=== PATIENT | female | born 1970 | race Native Hawaiian/Other Pacific Islander ===

== ENCOUNTER 2018-02-03 15:42 | Emergency (ER) | payer OTHER ==
[2018-02-03] MEDS ORDERED: SODIUM CHLORIDE 0.9% 1,000 ML IV ONE (16:11)
--- NOTE | 2018-02-03 16:14 | ED Physician Documentation ---
PD HPI NVD - Stated complaint Stated Complaint: DIARRHEA - Chief complaint Chief Complaint: Abd Pain - History obtained from History obtained from: Patient, Family - History of Present Illness Timing - onset: Last night Timing - duration: Hours Timing - details: Abrupt onset, Still present Associated symptoms: Abdominal pain, Other (nausea without vomiting) Improved by: Laying still, BM Similar symptoms before: Has not had sx before Recently seen: Not recently seen - Additonal information Additional information: Previously healthy 47-year-old female developed profuse diarrhea beginning yesterday evening. She states that she had more than 10 diarrheal movements of watery diarrhea without blood. She does not have a history of diarrhea and she does give history of consumption of eggs that she derives from chickens on her property. She states that yesterday she had eggs and rice for breakfast she had the usual sandwich she has for lunch and developed the diarrhea in the evening. She is complaining of some hives which she has had off and on for the past 2 weeks. She has had these hives once previously when she was . Review of Systems Constitutional: reports: Myalgias, Fatigue. denies: Fever, Chills Eyes: denies: Decreased vision Ears: denies: Ear pain Nose: denies: Congestion Throat: denies: Sore throat Cardiac: denies: Chest pain / pressure, Palpitations Respiratory: denies: Dyspnea, Cough GI: reports: Abdominal Pain, Nausea, Diarrhea. denies: Vomiting : denies: Dysuria, Frequency Skin: denies: Rash Musculoskeletal: denies: Neck pain, Back pain, Extremity pain Neurologic: denies: Generalized weakness, Focal weakness, Numbness PD PAST MEDICAL HISTORY - Present Medications Home Medications: Ambulatory Orders Medication Instructions Recorded Confirmed Multivitamin [Multiple Vitamins] 02/03/18 Ondansetron Odt [Zofran] 4 mg TL Q6H PRN #10 tablet 02/03/18 - Allergies Allergies/Adverse Reactions: Allergies Allergy/AdvReac Type Severity Reaction Status Date / Time No Known Drug Allergies Allergy Verified 02/03/18 15:47 PD ED PE NORMAL - Vitals Vital signs reviewed: Yes (hypertensive) - General General: Alert and oriented X 3, No acute distress, Well developed/nourished - HEENT HEENT: Atraumatic, PERRL, EOMI - Neck Neck: Supple, no meningeal sign, No bony TTP - Cardiac Cardiac: RRR, No murmur - Respiratory Respiratory: No respiratory distress, Clear bilaterally - Abdomen Abdomen: Normal bowel sounds, Soft, Non tender, Non distended, No organomegaly - Back Back: No CVA TTP, No spinal TTP - Derm Derm: Normal color, Warm and dry, No rash - Extremities Extremities: No deformity, No edema - Neuro Neuro: Alert and oriented X 3, 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, No motor deficit, No sensory deficit, Normal speech Eye Opening: Spontaneous Motor: Obeys Commands Verbal: Oriented GCS Score: 15 - Psych Psych: Normal mood, Normal affect Results - Vitals Vitals: Vital Signs - 24 hr 02/03/18 02/03/18 15:45 17:30 Temperature 36.8 C Heart Rate 91 82 Respiratory 16 19 Rate Blood Pressure 138/80 H 142/88 H O2 Saturation 99 100 Oxygen O2 Source Room air - Labs Labs: Laboratory Tests 02/03/18 02/03/18 02/03/18 16:45 16:45 17:20 WBC 6.5 RBC 4.45 Hgb 13.4 Hct 40.4 MCV 90.8 MCH 30.1 MCHC 33.2 RDW 13.7 Plt Count 281 MPV 8.7 Neut # (Auto) 4.3 Lymph # (Auto) 1.2 L [place] # (Auto) 0.7 Eos # (Auto) 0.2 Baso # (Auto) 0.0 Absolute Nucleated RBC 0.00 Nucleated RBC % 0.1 Sodium 132 L Potassium 7.6 H* Chloride 100 L Carbon Dioxide 25 Anion Gap 7.0 BUN 12 Creatinine 0.8 Estimated GFR (MDRD) 77 L Glucose 104 H Calcium 8.2 L Total Bilirubin 1.5 H AST 63 H ALT 38 Alkaline Phosphatase 73 Total Protein 7.5 Albumin 3.9 Globulin 3.6 Albumin/Globulin Ratio 1.1 Lipase 32 Urine Color YELLOW Urine Clarity HAZY Urine pH 6.5 Ur Specific [place] 1.015 Urine Protein NEGATIVE Urine Glucose (UA) NEGATIVE Urine Ketones NEGATIVE Urine Occult Blood NEGATIVE Urine Nitrite POSITIVE H Urine Bilirubin NEGATIVE Urine Urobilinogen 0.2 (NORMAL) Ur Leukocyte Esterase SMALL H Urine RBC None Seen Urine WBC 11-25 H Ur Squamous Epith Cells MOD Squamous H Urine Bacteria Many H Ur Microscopic Review INDICATED Urine Culture Comments NOT INDICATED Urine HCG, Qual NEGATIVE 02/03/18 02/03/18 18:30 18:45 WBC RBC Hgb Hct MCV MCH MCHC RDW Plt Count MPV Neut # (Auto) Lymph # (Auto) [place] # (Auto) Eos # (Auto) Baso # (Auto) Absolute Nucleated RBC Nucleated RBC % Sodium 137 Potassium 3.6 Chloride 105 Carbon Dioxide 25 Anion Gap 7.0 BUN 10 Creatinine 0.8 Estimated GFR (MDRD) 77 L Glucose 99 Calcium 8.0 L Total Bilirubin AST ALT Alkaline Phosphatase Total Protein Albumin Globulin Albumin/Globulin Ratio Lipase Urine Color YELLOW Urine Clarity CLEAR Urine pH 7.0 Ur Specific [place] 1.010 Urine Protein NEGATIVE Urine Glucose (UA) NEGATIVE Urine Ketones NEGATIVE Urine Occult Blood TRACE-INTA Urine Nitrite NEGATIVE Urine Bilirubin NEGATIVE Urine Urobilinogen 0.2 (NORMAL) Ur Leukocyte Esterase NEGATIVE Urine RBC Urine WBC Ur Squamous Epith Cells Urine Bacteria Ur Microscopic Review NOT INDICATED Urine Culture Comments NOT INDICATED Urine HCG, Qual Procedures - IVC sono (time) 1605 Bedside IVC sono: IVC measures (cm) (1.21), IVC collapsed c insp (cm) (complete) , Dehydration (est 1 liter deficit) PD MEDICAL DECISION MAKING - ED course Complexity details: reviewed old records, reviewed results, re-evaluated patient , considered differential, d/w patient, d/w family ED course: 47-year-old female with acute explosive diarrhea has become mildly dehydrated. IV is begun she is given intravenous saline her inferior vena cava is interrogated and she is about 1 L deficit. She produces a urine specimen that appears infected but contaminated and a cath specimen is sought and this is not obtained secondary to abnormal anatomy. A second clean catch specimen is obtained and appears without infection. - Sepsis Event Vital Signs: Vital Signs - 24 hr 02/03/18 02/03/18 15:45 17:30 Temperature 36.8 C Heart Rate 91 82 Respiratory 16 19 Rate Blood Pressure 138/80 H 142/88 H O2 Saturation 99 100 Oxygen O2 Source Room air Departure - Departure Disposition: 01 Home, Self Care Clinical Impression: Dehydration, Acute diarrhea Condition: Stable Instructions: ED Dehydration, ED Diet Vomiting Diarrhea Follow-Up: ABBY Harris [Provider Group] Prescriptions: Ondansetron Odt [Zofran] 4 mg TL Q6H PRN #10 tablet PRN Reason: Nausea / Vomiting
[2018-02-03 17:03] LABS: BASOPHILS % (AUTO) 0.5 %; EOSINOPHILS # (AUTO) 0.2 10^3/uL (0.0-0.7); EOSINOPHILS % (AUTO) 3.2 %; HGB - HEMOGLOBIN 13.4 g/dL (12.0-16.0); LYMPHOCYTES # (AUTO) 1.2 10^3/uL (1.5-3.5); LYMPHOCYTES % (AUTO) 18.8 %; MEAN CORPUSCULAR HEMOGLOBIN 30.1 pg (27.0-31.0); MEAN CORPUSCULAR HGB CONC 33.2 g/dL (32.0-36.0); MEAN CORPUSCULAR VOLUME 90.8 fL (81.0-99.0); MEAN PLATELET VOLUME 8.7 fL (7.9-10.8); MONOCYTES # (AUTO) 0.7 10^3/uL (0.0-1.0); MONOCYTES % (AUTO) 10.9 %; NEUTROPHILS # (AUTO) 4.3 10^3/uL (1.5-6.6); NEUTROPHILS % (AUTO) 66.6 %; PLT - PLATELET COUNT 281 10^3/uL (130-450); RED BLOOD COUNT 4.45 10^6/uL (4.20-5.40); RED CELL DISTRIBUTION WIDTH 13.7 % (12.0-15.0); WHITE BLOOD COUNT 6.5 x10^3/uL (4.8-10.8)
[2018-02-03 17:22] LABS: ALBUMIN 3.9 g/dL (3.2-5.5); ALBUMIN/GLOBULIN RATIO 1.1 (1.0-2.2); BILIRUBIN,TOTAL 1.5 mg/dL (0.2-1.0); CALCIUM 8.2 mg/dL (8.5-10.3); CREATININE 0.8 mg/dL (0.4-1.0); TOTAL PROTEIN 7.5 g/dL (6.7-8.2)
[2018-02-03 17:38] LABS: BILIRUBIN,URINE NEGATIVE (NEGATIVE); GLUCOSE, URINE (UA) NEGATIVE (NEGATIVE); KETONES,URINE (UA) NEGATIVE (NEGATIVE); LEUKOCYTE ESTERASE, URINE SMALL (NEGATIVE); NITRITE,URINE POSITIVE (NEGATIVE); OCCULT BLOOD,URINE NEGATIVE (NEGATIVE); PH,URINE 6.5 PH (5.0-7.5); PROTEIN,URINE NEGATIVE (NEGATIVE); UROBILINOGEN,URINE 0.2 (NORMAL) E.U./dL (NORMAL)
[2018-02-03 17:42] LABS: CLARITY,URINE HAZY (CLEAR); HCG UR QUAL NEGATIVE
[2018-02-03 17:49] LABS: BACTERIA,URINE Many /HPF (None Seen); RBC,URINE None Seen /HPF (0-5); SQUAMOUS EPITHELIAL CELL,UR MOD Squamous (<= Few)
[2018-02-03 18:45] LABS: BILIRUBIN,URINE NEGATIVE (NEGATIVE); GLUCOSE, URINE (UA) NEGATIVE (NEGATIVE); KETONES,URINE (UA) NEGATIVE (NEGATIVE); LEUKOCYTE ESTERASE, URINE NEGATIVE (NEGATIVE); NITRITE,URINE NEGATIVE (NEGATIVE); OCCULT BLOOD,URINE TRACE-INTA (NEGATIVE); PROTEIN,URINE NEGATIVE (NEGATIVE); UROBILINOGEN,URINE 0.2 (NORMAL) E.U./dL (NORMAL)
[2018-02-03 18:47] LABS: CLARITY,URINE CLEAR (CLEAR)
[2018-02-03 18:59] LABS: CREATININE 0.8 mg/dL (0.4-1.0)
[2018-02-03 19:13] VITALS: BP 133/87
== END 2018-02-03 19:13 | disposition home or self-care (01) ==
LOC: ED 15:42
DX: E86.0 Dehydration (principal); R19.7 Diarrhea, unspecified; R11.0 Nausea
CPT/HCPCS: 36415; 80048; 80053; 81001; 81003; 81025; 83690; 85025; 87086; 96360; 96361; 99283

== ENCOUNTER 2019-07-26 11:08 | Outpatient (CLI) | payer OTHER ==
--- NOTE | 2019-07-27 08:22 | Mammography Report ---
Reason: ROUTINE SCREENING Procedure Date: 07/26/2019 Accession Number: [id number] / [id number] Procedure: AVILA - Screening Mammo Dig Bilat CPT Code: Final Report FULL RESULT: EXAM: Screening Mammo Dig Bilat DATE: 07/26/2019 11:50 AM CLINICAL HISTORY: The patient is an asymptomatic 49-year-old female. Late childbearing. Prior benign breast biopsies. TECHNIQUE: (B) - Bilateral CC, laterally exaggerated CC, MLO views were obtained. COMPARISON: None available. PARENCHYMAL PATTERN: (D) - The breasts demonstrate heterogeneously dense fibroglandular parenchyma bilaterally. FINDINGS: Nonspecific nodular glandular asymmetry noted on this examination. A microclip in the retroareolar position of the right breast corresponds to the site of prior reported benign biopsy. There are no suspicious masses, calcifications, or areas of distortion. IMPRESSION: Benign findings. BI-RADS category 2. RECOMMENDATION: (ANNUAL) - Recommend routine annual screening mammography. Note: If prior mammograms become available - an addendum with updated recommendations will be issued. BI-RADS CATEGORY: (2) - Benign Findings. STANDARD QUALIFYING STATEMENTS: A negative or benign imaging report should not preclude biopsy if clinically suspicious findings are present. Dense breasts may obscure an underlying neoplasm.
== END 2019-07-26 11:09 | disposition home or self-care (01) ==
LOC: DI 11:08
DX: Z12.31 Encounter for screening mammogram for malignant neoplasm of breast (principal)
CPT/HCPCS: 77067

== ENCOUNTER 2021-05-15 08:00 | Outpatient (CLI) | payer OTHER | END 2021-05-15 23:59 | disposition home or self-care (01) | LOC: LAB 08:00 | PROVIDERS: ATTEND Physician Assistant Medical | DX: N30.00 Acute cystitis without hematuria (principal) | CPT/HCPCS: 87077; 87086; 87181 ==

== ENCOUNTER 2021-06-23 08:00 | Outpatient (CLI) | payer OTHER ==
--- NOTE | 2021-06-23 14:43 | XRAY Report ---
PROCEDURE: Chest 2 View X-Ray INDICATIONS: UPPER RESPIRATORY INFECTION TECHNIQUE: 2 view(s) of the chest. COMPARISON: None. FINDINGS: Surgical changes and devices: None. Lungs and pleura: No pleural effusions or pneumothorax. Lungs are clear. Mediastinum: Mediastinal contours are normal. Heart size is normal. Bones and chest wall: No suspicious bony abnormalities. Soft tissues appear unremarkable. IMPRESSION: No acute pulmonary process. Reviewed by: Hayley Simon MD on 06/23/2021 2:41 PM [facility] Approved by: Hayley Simon MD on 06/23/2021 2:41 PM [facility] Station ID: [id number]
== END 2021-06-23 23:59 | disposition home or self-care (01) ==
LOC: DI.S 08:00
PROVIDERS: ATTEND Emergency Medicine
DX: U07.1 COVID-19 (principal); J06.9 Acute upper respiratory infection, unspecified
CPT/HCPCS: 87070

== ENCOUNTER 2022-08-25 15:03 | Outpatient (CLI) | payer OTHER ==
--- NOTE | 2022-08-27 08:25 | Mammography Report ---
BILATERAL DIGITAL SCREENING MAMMOGRAM 3D/2D WITH EXAGGERATED CC: 08/25/2022 CLINICAL: Routine screening. Comparison is made to exams dated: 07/26/2019 mammogram, 08/25/2022 mammogram - [facility], 12/23/2016 mammogram - [facility], and 12/16/2016 mammogram - [facility]. Both breasts are heterogeneously dense, which may obscure small masses (category c / 51-75% glandular tissue). No significant masses, calcifications, or other findings are seen in either breast. There has been no significant interval change. IMPRESSION: NEGATIVE There is no mammographic evidence of malignancy. A 1 year screening mammogram is recommended. This exam was interpreted at Station ID: [id number]. NOTE: For mammograms, a report in lay terms will be sent to the patient. Approximately 15% of breast malignancies will not be visualized mammographically. In the management of a palpable breast mass, a negative mammogram must not discourage biopsy of a clinically suspicious lesion. Electronically Signed By: Brent carr/penrad:08/26/2022 11:40:45 ACR BI-RADS Category 1: Negative 3341F PARENCHYMAL PATTERN: (D) - The breast(s) demonstrate(s) heterogeneously dense fibroglandular azeb vicente. BI-RADS CATEGORY: (1) - 1 RECOMMENDATION: (ANNUAL) - Recommend routine annual screening mammography. [id number] 1 year screening LATERALITY: (B)
== END 2022-08-25 15:04 | disposition home or self-care (01) ==
LOC: DI 15:03
DX: Z12.31 Encounter for screening mammogram for malignant neoplasm of breast (principal)